=== PATIENT | male | born 1965 | race Caucasian/White ===

== ENCOUNTER 2021-09-24 13:30 | Day surgery (SDC) | payer OTHER ==
[2021-09-24] MEDS ORDERED: Xylocaine 1% Vial 30 ML PF IJ ONE (13:31)
[2021-09-24] MEDS ORDERED: SYNVISC 16 MG/2 ML SYRINGE IU ONE (13:31)
--- NOTE | 2021-09-24 17:03 | XRAY ---
Indication: Right knee injection. Intraoperative fluoroscopy provided for 22 seconds. Single digital spot image submitted for interpretation demonstrates needle tip projecting over the right femur intercondylar notch. Small amount of contrast injected for needle tip placement. Correlate with intraoperative findings/report.
--- NOTE | 2021-09-24 17:03 | XRAY ---
Indication: left knee injection. Intraoperative fluoroscopy provided for 19 seconds. Single digital spot image submitted for interpretation demonstrates needle tip projecting over the left femur intercondylar notch. Small amount of contrast injected for needle tip placement. Correlate with intraoperative findings/report.
--- NOTE | 2021-09-24 17:06 | XRAY ---
22 seconds of fluoroscopy was used in surgery for a right knee intra-articular injection.
--- NOTE | 2021-09-24 17:06 | XRAY ---
19 seconds of fluoroscopy was used in surgery for a left knee intra-articular injection.
== END 2021-09-24 16:48 | disposition home or self-care (01) ==
LOC: SDC-PAIN 13:30
PROVIDERS: ATTEND Psychiatry & Neurology Pain Medicine
DX: M17.0 Bilateral primary osteoarthritis of knee (principal); I10 Essential (primary) hypertension; Z79.899 Other long term (current) drug therapy
CPT/HCPCS: 20610; 73560; 77002; 82947; J2001; J7325; Q9966

== ENCOUNTER 2021-10-01 08:23 | Day surgery (SDC) | payer OTHER ==
[2021-10-01] MEDS ORDERED: SYNVISC 16 MG/2 ML SYRINGE IU ONE (08:24)
[2021-10-01] MEDS ORDERED: Xylocaine 1% Vial 30 ML PF IJ ONE (08:24)
--- NOTE | 2021-10-01 13:01 | XRAY ---
Indication: Right knee injection. Intraoperative fluoroscopy provided for 12 seconds. Single digital spot image submitted for interpretation demonstrates needle tip projecting over the right femur intercondylar notch. Small amount of contrast injected for needle tip placement. Correlate with intraoperative findings/report.
--- NOTE | 2021-10-01 13:03 | XRAY ---
Indication: Left knee injection. Intraoperative fluoroscopy provided for 8 seconds. Single digital spot image submitted for interpretation demonstrates needle tip projecting over the left femur intercondylar notch. Small amount of contrast injected for needle tip placement. Correlate with intraoperative findings/report.
--- NOTE | 2021-10-01 13:07 | XRAY ---
8 seconds of fluoroscopy was used in surgery for a left knee intra-articular injection.
--- NOTE | 2021-10-01 13:07 | XRAY ---
12 seconds of fluoroscopy was used in surgery for a right knee intra-articular injection.
== END 2021-10-01 10:32 | disposition home or self-care (01) ==
LOC: SDC-PAIN 08:23
PROVIDERS: ATTEND Psychiatry & Neurology Pain Medicine
DX: M17.0 Bilateral primary osteoarthritis of knee (principal); I10 Essential (primary) hypertension; Z79.899 Other long term (current) drug therapy
CPT/HCPCS: 20610; 73560; 77002; J2001; J7325; Q9966

== ENCOUNTER 2021-10-08 06:54 | Day surgery (SDC) | payer OTHER ==
[2021-10-08] MEDS ORDERED: Sodium Chloride 0.9% 10 ML FLUSH Syringe IJ ONE (06:55)
[2021-10-08] MEDS ORDERED: Xylocaine 1% Vial 30 ML PF IJ ONE (06:55)
[2021-10-08] MEDS ORDERED: SYNVISC 16 MG/2 ML SYRINGE IU ONE (06:55)
--- NOTE | 2021-10-08 09:53 | XRAY ---
Indication: Right knee injection. Intraoperative fluoroscopy provided for 21 seconds. Single digital spot image submitted for interpretation demonstrates needle tip projecting over the right femur intercondylar notch. Small amount of contrast injected for needle tip placement. Correlate with intraoperative findings/report.
--- NOTE | 2021-10-08 11:07 | XRAY ---
8 seconds of fluoroscopy was used in surgery for a left knee intra-articular injection.
--- NOTE | 2021-10-08 11:17 | XRAY ---
21 seconds of fluoroscopy was used in surgery for a right knee intra-articular injection.
== END 2021-10-08 09:18 | disposition home or self-care (01) ==
LOC: SDC-PAIN 06:54
PROVIDERS: ATTEND Psychiatry & Neurology Pain Medicine
DX: M17.0 Bilateral primary osteoarthritis of knee (principal); I10 Essential (primary) hypertension; Z79.899 Other long term (current) drug therapy
CPT/HCPCS: 20610; 73560; 77002; J2001; J7325; Q9966